=== PATIENT | female | born 1955 | race Hispanic/Latino ===

== ENCOUNTER → 2022-08-09 | Outpatient (CLI) | payer OTHER ==
[~2022-08-09] MED LIST: FURO20TA4 PO; LOSA100T58 PO; METF-444 PO; NAPR-1180 PO; VITAMIND PO; amlodipine PO
== END | disposition home or self-care (01) ==
LOC: SHCH 11:00
PROVIDERS: ATTEND Student in an Organized Health Care Education/Training Program
DX: R06.00 Dyspnea, unspecified (principal); I10 Essential (primary) hypertension; E11.9 Type 2 diabetes mellitus without complications; E66.9 Obesity, unspecified; E78.5 Hyperlipidemia, unspecified
CPT/HCPCS: 93306

== ENCOUNTER 2024-04-24 06:19 | Day surgery (SDC) | payer OTHER ==
[2024-04-22 11:18] VITALS: BP 134/53; PULSE 69; RESP 21
[2024-04-22 11:29] LABS: BASOPHILS # (AUTO) 0.05 K/uL (0.00-0.20); BASOPHILS % (AUTO) 0.4 % (0.0-5.0); EOSINOPHILS # (AUTO) 0.06 K/uL (0.00-0.70); EOSINOPHILS % (AUTO) 0.5 % (0.0-8.0); HEMATOCRIT 37.4 % (36-48); IMMATURE GRANULOCYTE ABSOLUTE 0.03 K/uL (0-1); LYMPHOCYTES # (AUTO) 4.1 K/uL (1.0-4.8); MEAN CORPUSCULAR HEMOGLOBIN 29.1 pg (27.0-33.0); MEAN CORPUSCULAR HGB CONC 32.6 g/dL (32.0-36.0); MEAN CORPUSCULAR VOLUME 89.3 fL (79-99); MONOCYTES # (AUTO) 0.7 K/uL (0.1-1.0); MONOCYTES % (AUTO) 5.7 % (3.0-13.0); NEUTROPHILS # (AUTO) 7.8 K/uL (1.8-7.7); NEUTROPHILS % (AUTO) 61.2 % (40.0-77.0); PLATELET COUNT (AUTO) 219 K/uL (130-400); RED BLOOD CELL COUNT(AUTO) 4.19 MIL/uL (4.00-5.50); RED CELL DISTRIBUTION WIDTH 12.8 % (11.0-15.5); WHITE BLOOD COUNT (AUTO) 12.7 K/uL (4.8-10.8)
[2024-04-22 11:40] LABS: CREATININE 0.7 mg/dL (0.5-1.0)
[~2024-04-24] VITALS: Ht 170.2 cm; Wt 105.8 kg
[2024-04-24] VITALS (17 sets, daily range): BP systolic 113–139; BP diastolic 53–73; PULSE 57–74; RESP 10–21
[~2024-04-24 06:19] MED LIST changes: +AMLO-258 PO; +CARV6.25 PO; +DICY20TA3 PO; +GLIP5TAB15 PO; +HYDR25TA PO; -LOSA100T58 PO; +LOSA100T59 PO; -NAPR-1180 PO; +OMEP40CA21 PO; +ROSU5TAB43 PO; +SEMA7TAB2 PO; -VITAMIND PO; -amlodipine PO
[2024-04-24] MEDS ORDERED: METRONIDAZOLE 500MG/100ML BAG 0 ML ONE (06:43)
[2024-04-24] MEDS ORDERED: ACETAMINOPHEN 1,000 MG/100 ML VIAL IV ONE (06:59)
[2024-04-24] MEDS ORDERED: FAMOTIDINE 20MG VIAL IV ONE (06:59)
[2024-04-24] MEDS ORDERED: LIDOCAINE PF 100MG/5ML (2%) SYRINGE 5ML ONE (07:14)
[2024-04-24] MEDS ORDERED: FENTANYL CITRATE PF 50 MCG/1 ML 2ML VIAL ONE (07:15)
[2024-04-24] MEDS ORDERED: ROCURONIUM BROMIDE 10MG/1ML 5ML VL ONE (07:15)
[2024-04-24] MEDS ORDERED: PROPOFOL 10 MG/ML 20ML VIAL IV ONE (07:15)
[2024-04-24] MEDS ORDERED: INDOCYANINE GREEN 25 MG VIAL IJ ONE (07:21)
[2024-04-24] MEDS: CEFAZOLIN SODIUM 2 GM VIAL ONE (07:40)
[2024-04-24] MEDS: 0.9%NACL 1000ML 1,000 ML IV ONE (07:40)
[2024-04-24] MEDS ORDERED: ONDANSETRON 4MG INJ ONE (08:05)
[2024-04-24] MEDS ORDERED: DEXAMETHASONE SOD PHOSPHATE 10MG/ML 1ML VIAL ONE (08:05)
[2024-04-24] MEDS ORDERED: EPHEDRINE SULFATE 50 MG/ML AMPULE ONE (08:15)
[2024-04-24] MEDS ORDERED: NEOSTIGMINE METHYLSULFATE 1MG/ML IV ONE (08:15)
[2024-04-24] MEDS ORDERED: GLYCOPYRROLATE 0.2 MG/ML 5 ML VIAL ONE (08:15)
[2024-04-24] MEDS: BUPIVACAINE/PF 0.25% 30ML VIAL IJ ONE (08:33)
== END 2024-04-24 11:30 | disposition home or self-care (01) ==
LOC: DAH 06:19
PROVIDERS: ATTEND Surgery
DX: K80.10 Calculus of gallbladder with chronic cholecystitis without obstruction (principal); K82.8 Other specified diseases of gallbladder; K74.60 Unspecified cirrhosis of liver; I10 Essential (primary) hypertension; K21.9 Gastro-esophageal reflux disease without esophagitis; M79.7 Fibromyalgia; E11.9 Type 2 diabetes mellitus without complications; F41.9 Anxiety disorder, unspecified; M06.9 Rheumatoid arthritis, unspecified; E66.9 Obesity, unspecified; Z90.710 Acquired absence of both cervix and uterus; Z79.84 Long term (current) use of oral hypoglycemic drugs; Z79.899 Other long term (current) drug therapy; Z88.6 Allergy status to analgesic agent; Z88.8 Allergy status to other drugs, medicaments and biological substances; Z68.37 Body mass index [BMI] 37.0-37.9, adult
CPT/HCPCS: 80048; 85025; 86850; 86900; 86901; 36415 ×2; 93005; 47379; 47563; 84132; 82948 ×2; 88313; 88304; 88307; A6260; A4600; A4663; A4215 ×2; J3490 ×4; J3010; J1100; J7030; J0665; J2001; J2704; J2405; J2710; J0690; G0168; A4649; A4223; A4222; A4221